=== PATIENT | male | born 1990 | race African-American/Black ===

== ENCOUNTER 2016-10-20 23:12 | Emergency (ER) | payer SELFPAY ==
[~2016-10-20] VITALS: Ht 170.2 cm; Wt 72.7 kg
[2016-10-20 23:16] VITALS: BP 144/72
== END 2016-10-21 03:45 | disposition left against medical advice (07) ==
LOC: ER 23:12
DX: Z53.21 Procedure and treatment not carried out due to patient leaving prior to being seen by health care provider (principal)